=== PATIENT | female | born 1950 ===

== ENCOUNTER 2023-09-12 11:04 | Outpatient (AMB) | payer MEDICARE, MEDICAID, SELFPAY ==
--- NOTE | 2023-09-12 11:12 | A.OFFPC_ITS ---
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 Allergies No Known Allergies Allergy (Verified 09/12/23 11:15) Medication List - Last Reconciled 09/12/23 by Nakia Jose MD blood sugar diagnostic (OneTouch Ultra Test strips) 1 QD blood-glucose meter (OneTouch Ultra2 Meter) As directed lisinopril 5 mg PO DAILY Tobacco use date assessed: 09/12/23 Fall risk assessment: No Falls in past year Last assessed Fall Risk: 09/12/23 Dental Screening Dental Screen Date: 09/12/23 Did you have a dental visit in the last 12 months?: No Did you have a dental problem in the last 6 months where you did not have access to dental care?: No Was dental information given to patient?: Patient declined 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 Past medical history includes hypertension controlled on lisinopril and type 2 diabetes diet controlled. She has been exercising daily for at least an hour doing water aerobics and walking. [facility] Family History (Updated 09/12/23 @ 11:19 by Bree Wilburn [facility]) Father No problems noted. Mother No problems noted. Social History (Updated 09/12/23 @ 12:30 by Nakia Jose MD) Household Members Other:: single, from [facility], son and grandsons in , daughter in [facility], Housing: Other Patient Tobacco Use Status: Never used Tobacco e-Cigarette/Vaping Use: Never Used Current occupational status: retired Cognitive needs: No Hearing needs: No Vision needs: No Questionnaire PHQ-9 Over the last 2 weeks, how often have you been bothered by any of the following problems? 1. Little interest or pleasure in doing things: not at all 2. Feeling down, depressed, or hopeless: not at all 3. Trouble falling or staying asleep, or sleeping too much: not at all 4. Feeling tired or having little energy: not at all 5. Poor appetite or overeating: not at all 6. Feeling bad about yourself - or that you are a failure or have let yourself or your family down: not at all 7. Trouble concentrating on things, such as reading the newspaper or watching television: not at all 8. Moving or speaking so slowly that other people could have noticed. Or the opposite - being so fidgety or restless that you have been moving around a lot more than usual: not at all 9. Thoughts that you would be better off or of hurting yourself in some way: not at all Total score: 0 Depression Screening Interpretation: Negative Depression Screening Done: Yes Source: Developed by Drs. Nakul Hutton, Miranda Hinojosa, Franklin Bonilla and colleagues, with an educational evelyn from [employer]. Thrive Questionnaire Date Thrive assessed: 09/12/23 I am a: Patient What is your living situation today?: I have a steady place to live Within the past 12 months, did the food you bought not last and you didn't have the money to get more?: Never true Within the past 12 months, did you worry whether your food would run out before you got money to buy more?: Never true Do you have trouble paying for medicines?: No Do you have trouble getting transportation to medical appointments?: No Do you have trouble paying your heating and electricity bill?: No Do you have trouble taking care of your child, family member or friend?: No Do you have trouble with day-to-day activities such as bathing, preparing meals, shopping, managing finances, etc.?: No Are you currently unemployed and looking for a job?: No Are you interested in more education?: No Please select the resources that you would like help with: None Currently or been in a relationship where the following occur: no concerns reported AUDIT C Alcohol Use Questionnaire (AUDIT-C) 1. How often do you have a drink containing alcohol?: Never 3. How often do you have six or more drinks on one occasion?: Never Total Score: 0 EMILY-7 AMB Questionnaire EMILY-7 Date EMILY - 7 assessed: 09/12/23 Feeling nervous, anxious, or on edge: 0 = Not at all Not being able to stop or control worryin = Not at all Worrying too much about different things: 0 = Not at all Trouble relaxin = Not at all Being so restless that it is hard to sit still: 0 = Not at all Becoming easily annoyed or irritable: 0 = Not at all Feeling afraid as if something awful might happen: 0 = Not at all Total EMILY-7 score (0-4 normal; 5-9 mild; 10-14 moderate; 15-21 severe): 0 Source: Developed by Drs. Nakul Hutton, Miranda Hinojosa, Franklin Bonilla and colleagues, with an educational evelyn from [employer]. Review of Systems Const All systems reviewed & are unremarkable except as noted in HPI and below Eyes Reports no additional complaints Card Reports no additional complaints Resp Reports no additional complaints GI Reports no additional complaints Reports no additional complaints Physical exam (Primary Care) Vital Signs: Last Vital Signs Pulse 58 09/12/23 11:13 BP 124/74 09/12/23 11:13 Pulse Ox 97 09/12/23 11:13 Oxygen Delivery Method Room Air 09/12/23 11:13 BMI result Body Mass Index 29.1 Tobacco/Smoking Status: Tobacco use Status Tobacco use date assessed 09/12/23 09/12/23 11:21 Patient Tobacco Use Status Never used Tobacco 09/12/23 11:21 e-Cigarette/Vaping Use Never Used 09/12/23 11:21 PHQ-9: PHQ-9 Score PHQ-9: Total score 0 09/12/23 11:21 Depression Screening Interpretation: Negative Thrive Assessment: Date of Thrive Assessment Date Thrive assessed 09/12/23 09/12/23 11:21 Currently or been in a relationship where the following occur: no concerns reported Const General: no acute distress HENMT Head: Yes normal to inspection Ears: hearing grossly normal bilaterally Face and sinus: Yes normal facial exam Mouth: Normal oral and palatal mucosa present Throat: Yes posterior oropharynx normal Neck Neck: Yes no lymphadenopathy and Yes supple Resp Effort & Inspection: normal respiratory effort Auscultation: clear to auscultation bilaterally Cardio Rhythm: regular rhythm Heart sounds: S1 normal heart sound present and S2 normal heart sound present GI Inspection: Yes normal to inspection Palpation (GI): Soft to palpation Percussion: Yes normal to percussion Auscultation: normal bowel sounds Assessment and Plan Assessment & Plan (1) DM type 2 (diabetes mellitus, type 2): Code(s): E11.9 - Type 2 diabetes mellitus without complications Plan: Patient will have a fasting blood work in [facility] diet regular exercise discussed with the patient. Follow-up in 6 months (2) HTN (hypertension): Code(s): I10 - Essential (primary) hypertension Plan: Continue lisinopril (3) Colonoscopy refused: Comment: 10/03, Cologuard will be sent Code(s): Z53.20 - Procedure and treatment not carried out because of patient's decision for unspecified reasons (4) Mammogram declined: Comment: 10/03 Code(s): Z53.20 - Procedure and treatment not carried out because of patient's decision for unspecified reasons Orders: Orders Comprehensive [place]. Panel Fast Today E11.9 - Type 2 diabetes mellitus without complications, I10 - Essential (primary) hypertension Complete Blood Count Auto Diff Today E11.9 - Type 2 diabetes mellitus without complications, I10 - Essential (primary) hypertension Hemoglobin A1c Today E11.9 - Type 2 diabetes mellitus without complications, I10 - Essential (primary) hypertension Lipid Panel Today E11.9 - Type 2 diabetes mellitus without complications, I10 - Essential (primary) hypertension Microalbumin, Random (w Creat) Today E11.9 - Type 2 diabetes mellitus without complications, I10 - Essential (primary) hypertension TSH reflex Free T4 Today E11.9 - Type 2 diabetes mellitus without complications, I10 - Essential (primary) hypertension Referrals Cologuard Test Z12.11 - Encounter for screening for malignant neoplasm of colon, Z12.12 - Encounter for screening for malignant neoplasm of rectum Medications: New lisinopril 5 mg PO DAILY 90 tabs 3RF blood-glucose meter (OneTouch Ultra2 Meter) As directed 1 ea 0RF blood sugar diagnostic (OneTouch Ultra Test strips) 1 QD 100 ea 3RF Coding Level of Care Code New Pt Level 4 (98078) Diagnoses DM type 2 (diabetes mellitus, type 2) E11.9 HTN (hypertension) I10 Colonoscopy refused Z Mammogram declined Z
[2023-09-12 11:13] VITALS: BP 124/74; PULSE 58; O2SAT 97; BMI 29.1
== END 2023-09-12 12:36 | disposition home or self-care (01) ==
PROVIDERS: PCP Internal Medicine; Visit Provider Internal Medicine
DX: E11.9 Type 2 diabetes mellitus without complications (principal); I10 Essential (primary) hypertension; Z53.20 Procedure and treatment not carried out because of patient's decision for unspecified reasons
CPT/HCPCS: 99204

== ENCOUNTER 2024-03-14 08:20 | Outpatient (REF) | payer MEDICARE, MEDICAID, SELFPAY ==
[2024-03-14 11:08] LABS: MANUAL DIFF FLAG NO
[2024-03-14 11:17] LABS: Basophils Absolute Auto 0.1 X10*3/uL (0.0-0.2); Basophils Percent Auto 0.5 % (0-2); Eosinophils Absolute Auto 0.2 X10*3/uL (0.0-0.4); Eosinophils Percent Auto 2.3 % (0-4); Hematocrit 41.6 % (37.0-47.0); Imm Gran Abs Auto 0.01 X10*3/uL (0.00-0.03); Imm Gran Pct Auto 0.1 % (0.0-0.4); Lymphocytes Absolute Auto 3.7 X10*3/uL (1.2-4.9); Lymphocytes Percent Auto 38.9 % (20-40); Mean Corpuscular HGB Conc 33.7 g/dl (31.0-35.0); Mean Corpuscular Hemoglobin 32.1 pg (27.0-33.0); Mean Corpuscular Volume 95.4 fL (80.0-98.0); Mean Platelet Volume 10.5 fL (9.4-12.3); Monocytes Absolute Auto 0.6 X10*3/uL (0.1-1.2); Monocytes Percent Auto 5.7 % (2-11); Neutrophils Percent Auto 52.5 % (45-73); Platelet Count 306 X10*3/uL (160-400); Red Blood Count 4.36 X10*6/uL (4.20-5.50); Red Cell Distribution Width 12.4 % (11.0-16.0); White Blood Count 9.6 X10*3/uL (4.8-10.8)
[2024-03-14 11:31] LABS: Estimated Average Glucose 126 mg/dL; Hemoglobin A1C 149.7578 umol/L
[2024-03-14 12:00] LABS: Alanine Aminotransferase 16 U/L (0-31); Albumin Level 4.1 g/dL (3.5-5.0); Alkaline Phosphatase 74 U/L (39-117); Anion Gap 13 (12-20); Aspartate Amino Transferase 21 U/L (5-31); Bilirubin Total 0.4 mg/dL (0.0-1.0); Blood Urea Nitrogen 16 mg/dL (9-16); Carbon Dioxide 26 mmol/L (22-29); Chloride 109 mmol/L (96-108); Cholesterol 162 mg/dL (<200); Estimated Glomerular Filt Rate > 60; Glucose Fasting 143 mg/dL (60-99); HDL Cholesterol 60 mg/dL (>40); LDL Cholesterol Calculated 90 mg/dL (<100); Potassium 5.1 mmol/L (3.3-5.1); Sodium 143 mmol/L (135-145); Total Protein 6.8 g/dL (6.5-8.0); Triglycerides 63 mg/dL (<150)
[2024-03-14 12:20] LABS: TSH reflex Free T4 1.39 uIU/mL (0.32-4.0)
== END 2024-03-14 08:21 | disposition home or self-care (01) ==
LOC: HO.HMGCLDS 08:20
PROVIDERS: PCP Internal Medicine; Visit Provider Internal Medicine
DX: I10 Essential (primary) hypertension (principal); E11.9 Type 2 diabetes mellitus without complications
CPT/HCPCS: 36415; 80053; 80061; 83036; 84443; 85025

== ENCOUNTER 2024-03-16 05:45 | Outpatient (REF) | payer OTHER, SELFPAY ==
[2024-03-16 14:29] LABS: Creatinine Urine 67.66 mg/dL; Microalbumin Urine < 5.0 mg/L
== END 2024-03-16 05:46 | disposition home or self-care (01) ==
LOC: HO.HMGCLNP 05:45
PROVIDERS: PCP Internal Medicine; Visit Provider Internal Medicine
DX: I10 Essential (primary) hypertension (principal); E11.9 Type 2 diabetes mellitus without complications
CPT/HCPCS: 82043; 82570

== ENCOUNTER 2024-03-16 09:54 | Outpatient (AMB) | payer MEDICARE, MEDICAID, SELFPAY ==
[2024-03-16 10:00] VITALS: BP 126/64; PULSE 68; O2SAT 96; BMI 28.3
--- NOTE | 2024-03-16 10:00 | A.OFFPC_ITS ---
Vital Signs 03/16/24 10:00 Height 5 ft 5 in Weight 170 lb BMI 28.3 BP 126/64 Blood Pressure Location Lt brachial Position Sitting Pulse 68 Pulse Source Pulse Oximeter Pulse Oximetry (%) 96 Oxygen Delivery Method Room Air Intake Visit Reasons: 6 Month Follow Up Intake Note: Pt is here today for 6 months follow up visit. Allergies No Known Allergies Allergy (Verified 03/16/24 10:19) Medication List - Last Reconciled 03/16/24 by Nakia Jose MD blood sugar diagnostic (OneTouch Ultra Test strips) 1 QD blood-glucose meter (OneTouch Ultra2 Meter) As directed lisinopril 5 mg PO DAILY omeprazole 20 mg PO DAILY Tobacco use date assessed: 03/16/24 Fall risk assessment: No Falls in past year Last assessed Fall Risk: 03/16/24 Dental Screening Dental Screen Date: 03/16/24 Did you have a dental visit in the last 12 months?: Yes Did you have a dental problem in the last 6 months where you did not have access to dental care?: No Was dental information given to patient?: Patient has dentist HPI 6 Month Follow Up HPI Details Pt presents for f/u diet controlled DM. Patient reports intermittent epigastric abdominal discomfort worse after eating no nausea vomiting change in bowel habits hematochezia or melena. She tried omeprazole for 5 days with good relief. [facility] Surgical History (Updated 03/16/24 @ 10:23 by THADDEUS Mitchell) No pertinent past surgical history Family History Father No problems noted. Mother No problems noted. Social History Household Members Other:: single, from [facility], son and grandsons in , daughter in [facility], Housing: Other Patient Tobacco Use Status: Never used Tobacco e-Cigarette/Vaping Use: Never Used service: No Current occupational status: retired Cognitive needs: No Hearing needs: No Vision needs: No Questionnaire PHQ-9 Over the last 2 weeks, how often have you been bothered by any of the following problems? 1. Little interest or pleasure in doing things: not at all 2. Feeling down, depressed, or hopeless: not at all 3. Trouble falling or staying asleep, or sleeping too much: not at all 4. Feeling tired or having little energy: not at all 5. Poor appetite or overeating: not at all 6. Feeling bad about yourself - or that you are a failure or have let yourself or your family down: not at all 7. Trouble concentrating on things, such as reading the newspaper or watching television: not at all 8. Moving or speaking so slowly that other people could have noticed. Or the opposite - being so fidgety or restless that you have been moving around a lot more than usual: not at all 9. Thoughts that you would be better off or of hurting yourself in some way: not at all Total score: 0 Depression Screening Interpretation: Negative Depression Screening Done: Yes Source: Developed by Drs. Nakul Hutton, Miranda Hinojosa, Franklin Bonilla and colleagues, with an educational evelyn from [employer]. Thrive Questionnaire Date Thrive assessed: 03/16/24 I am a: Patient What is your living situation today?: I have a steady place to live Within the past 12 months, did the food you bought not last and you didn't have the money to get more?: Never true Within the past 12 months, did you worry whether your food would run out before you got money to buy more?: Never true Do you have trouble paying for medicines?: No Do you have trouble getting transportation to medical appointments?: No Do you have trouble paying your heating and electricity bill?: No Do you have trouble taking care of your child, family member or friend?: No Do you have trouble with day-to-day activities such as bathing, preparing meals, shopping, managing finances, etc.?: No Are you currently unemployed and looking for a job?: No Are you interested in more education?: No Please select the resources that you would like help with: None THRIVE Score: 0 AUDIT C Alcohol Use Questionnaire (AUDIT-C) 1. How often do you have a drink containing alcohol?: Never 3. How often do you have six or more drinks on one occasion?: Never Total Score: 0 EMILY-7 AMB Questionnaire EMILY-7 Date EMILY - 7 assessed: 03/16/24 Feeling nervous, anxious, or on edge: 0 = Not at all Not being able to stop or control worryin = Not at all Worrying too much about different things: 0 = Not at all Trouble relaxin = Not at all Being so restless that it is hard to sit still: 0 = Not at all Becoming easily annoyed or irritable: 0 = Not at all Feeling afraid as if something awful might happen: 0 = Not at all Total EMILY-7 score (0-4 normal; 5-9 mild; 10-14 moderate; 15-21 severe): 0 Source: Developed by Drs. Nakul Hutton, Miranda Hinojosa, Franklin Bonilla and colleagues, with an educational evelyn from [employer]. Review of Systems Const All systems reviewed & are unremarkable except as noted in HPI and below Reports no additional complaints Eyes Reports no additional complaints ENT Reports no additional complaints Card Reports no additional complaints Resp Reports no additional complaints GI Reports no additional complaints Reports no additional complaints Physical exam (Primary Care) Vital Signs: Last Vital Signs Pulse 68 03/16/24 10:00 BP 126/64 03/16/24 10:00 Pulse Ox 96 03/16/24 10:00 Oxygen Delivery Method Room Air 03/16/24 10:00 BMI result Body Mass Index 28.3 Tobacco/Smoking Status: Tobacco use Status Tobacco use date assessed 03/16/24 03/16/24 10:20 Patient Tobacco Use Status Never used Tobacco 03/16/24 10:20 e-Cigarette/Vaping Use Never Used 03/16/24 10:00 PHQ-9: PHQ-9 Score PHQ-9: Total score 0 03/16/24 10:24 Depression Screening Interpretation: Negative Thrive Assessment: Date of Thrive Assessment Date Thrive assessed 03/16/24 03/16/24 10:24 Const General: no acute distress HENMT Head: Yes normal to inspection Ears: hearing grossly normal bilaterally General nose exam: Normal external nose present Face and sinus: Yes normal facial exam Mouth: Normal oral and palatal mucosa present Neck Neck: Yes supple Resp Effort & Inspection: normal respiratory effort Auscultation: clear to auscultation bilaterally Cardio Rhythm: regular rhythm Heart sounds: S1 normal heart sound present and S2 normal heart sound present GI Palpation (GI): Soft to palpation Percussion: Yes normal to percussion Auscultation: normal bowel sounds Assessment and Plan Assessment & Plan (1) DM type 2 (diabetes mellitus, type 2): Code(s): E11.9 - Type 2 diabetes mellitus without complications Plan: A1c is 6.0, continue ADA diet regular exercise. Follow-up in 6 months with a fasting labs before (2) Gastritis: Code(s): K29.70 - Gastritis, unspecified, without bleeding Plan: Patient will try omeprazole for 1 month if her symptoms persist she will be referred to GI for endoscopy Orders: Orders Comprehensive [place]. Panel Fast 6 Months E11.9 - Type 2 diabetes mellitus without complications Hemoglobin A1c 6 Months E11.9 - Type 2 diabetes mellitus without complications Medications: New omeprazole 20 mg PO DAILY 30 caps 0RF Coding Level of Care Code Est Pt Level 3 (39753) Diagnoses DM type 2 (diabetes mellitus, type 2) E11.9 Gastritis K29.70
== END 2024-03-16 11:28 | disposition home or self-care (01) ==
PROVIDERS: PCP Internal Medicine; Visit Provider Internal Medicine
DX: E11.9 Type 2 diabetes mellitus without complications (principal); K29.70 Gastritis, unspecified, without bleeding
CPT/HCPCS: 99213

== ENCOUNTER 2024-10-21 11:11 | Outpatient (AMB) | payer OTHER, SELFPAY ==
[2024-10-21 11:15] VITALS: BP 126/76; PULSE 82; O2SAT 96; BMI 27.1
--- NOTE | 2024-10-21 11:15 | MHC.PC.OV ---
Vital Signs 10/21/24 11:15 Height 5 ft 5 in Weight 163 lb BMI 27.1 BP 126/76 Blood Pressure Location Lt brachial Position Sitting Pulse 82 Pulse Source Pulse Oximeter Pulse Oximetry (%) 96 Oxygen Delivery Method Room Air Intake Visit Reasons: 6 mnth f/u Intake Note: Pt is here today for 6 months follow up visit. Allergies No Known Allergies Allergy (Verified 10/21/24 11:17) Medication List - Last Reconciled 10/21/24 by Nakia Jose MD blood sugar diagnostic (OneTouch Ultra Test strips) 1 QD blood-glucose meter (OneTouch Ultra2 Meter) As directed omeprazole 20 mg PO DAILY Tobacco use date assessed: 10/21/24 Dental Screening Dental Screen Date: 03/16/24 HPI 6 mnth f/u HPI Details Pt presents for f/u of hyperglycemia and chronic GERD. She has been physically active , eating well-balanced diet and denies complaints PFSH Surgical History No pertinent past surgical history Family History Father No problems noted. Mother No problems noted. Social History Household Members Other:: single, from [facility], son and grandsons in , daughter in [facility], Housing: Other Patient Tobacco Use Status: Never used Tobacco e-Cigarette/Vaping Use: Never Used service: No Current occupational status: retired Cognitive needs: No Hearing needs: No Vision needs: No Questionnaire Thrive Questionnaire Date Thrive assessed: 03/16/24 EMILY-7 AMB Questionnaire EMILY-7 Date EMILY - 7 assessed: 03/16/24 Source: Developed by Drs. Nakul Hutton, Miranda Hinojosa, Franklin Bonilla and colleagues, with an educational evelyn from [employer]. Review of Systems Const All systems reviewed & are unremarkable except as noted in HPI and below ENT Reports no additional complaints Card Reports no additional complaints Resp Reports no additional complaints GI Reports no additional complaints Reports no additional complaints Physical exam (Primary Care) Vital Signs: Last Vital Signs Pulse 82 10/21/24 11:15 BP 126/76 10/21/24 11:15 Pulse Ox 96 10/21/24 11:15 Oxygen Delivery Method Room Air 10/21/24 11:15 BMI result Body Mass Index 27.1 Tobacco/Smoking Status: Tobacco use Status Tobacco use date assessed 10/21/24 10/21/24 11:19 Patient Tobacco Use Status Never used Tobacco 10/21/24 11:19 e-Cigarette/Vaping Use Never Used 10/21/24 11:19 Thrive Assessment: Date of Thrive Assessment Date Thrive assessed 03/16/24 10/21/24 11:19 Const General: no acute distress HENMT Mouth: Normal oral and palatal mucosa present Eyes General: appearance normal, both eyes and all related structures Neck Neck: Yes supple Resp Effort & Inspection: normal respiratory effort Auscultation: clear to auscultation bilaterally Cardio Rhythm: regular rhythm Heart sounds: S1 normal heart sound present and S2 normal heart sound present GI Inspection: Yes normal to inspection Palpation (GI): Soft to palpation Percussion: Yes normal to percussion Auscultation: normal bowel sounds Coding Level of Care Code Est Pt Level 3 (90625) Diagnoses DM type 2 (diabetes mellitus, type 2) E11.9 Vitamin D deficiency E55.9 Colonoscopy refused Z53.20 GERD (gastroesophageal reflux disease) K21.9 Assessment & Plan Assessment & Plan (1) DM type 2 (diabetes mellitus, type 2): Comment: Diet-controlled Code(s): E11.9 - Type 2 diabetes mellitus without complications Category: Medical Plan: Check A1c today, continue ADA diet regular physical activity follow-up in 6 months with a fasting labs before (2) Vitamin D deficiency: Code(s): E55.9 - Vitamin D deficiency, unspecified Category: Medical Plan: Continue vitamin-D supplement check the level (3) Colonoscopy refused: Comment: 10/03, Cologuard will be sent Code(s): Z53.20 - Procedure and treatment not carried out because of patient's decision for unspecified reasons Category: Medical Plan: Colonoscopy refused (4) GERD (gastroesophageal reflux disease): Comment: PPI prn Code(s): K21.9 - Gastro-esophageal reflux disease without esophagitis Category: Medical Plan: Continue PPI p.r.n. follow-up in 6 months Orders: Orders Comprehensive [place]. Panel Fast Today E11.9 - Type 2 diabetes mellitus without complications, E55.9 - Vitamin D deficiency, unspecified Comprehensive [place]. Panel Fast 6 Months E11.9 - Type 2 diabetes mellitus without complications, E55.9 - Vitamin D deficiency, unspecified Complete Blood Count Auto Diff 6 Months E11.9 - Type 2 diabetes mellitus without complications, E55.9 - Vitamin D deficiency, unspecified Microalbumin, Random (w Creat) 6 Months E11.9 - Type 2 diabetes mellitus without complications, E55.9 - Vitamin D deficiency, unspecified Hemoglobin A1c Today E11.9 - Type 2 diabetes mellitus without complications Vitamin D 25-OH Total Today E11.9 - Type 2 diabetes mellitus without complications Lipid Panel 6 Months E11.9 - Type 2 diabetes mellitus without complications, E55.9 - Vitamin D deficiency, unspecified Hemoglobin A1c 6 Months E11.9 - Type 2 diabetes mellitus without complications, E55.9 - Vitamin D deficiency, unspecified Medications: New esomeprazole magnesium (Nexium) 20 mg PO DAILY 30 caps 1RF lisinopril 5 mg PO DAILY 30 tabs 0RF Discontinued omeprazole Discontinued Reason: Doctor's Order 20 mg PO DAILY 30 caps 0RF
== END 2024-10-21 11:57 | disposition home or self-care (01) ==
PROVIDERS: PCP Internal Medicine; Visit Provider Internal Medicine
DX: E11.9 Type 2 diabetes mellitus without complications (principal); E55.9 Vitamin D deficiency, unspecified; Z53.20 Procedure and treatment not carried out because of patient's decision for unspecified reasons; K21.9 Gastro-esophageal reflux disease without esophagitis

== ENCOUNTER → 2024-11-30 10:32 | Outpatient (REF) | payer OTHER, SELFPAY ==
--- NOTE | 2024-11-30 10:35 | CA_ITS ---
Transthoracic Echocardiogram Patient (Last, First, Middle): Cynthia Echavarria, Gender: Female Date of : 1950 Age: 74 Procedure Date: 11/30/2024 Procedure Type: Transthoracic Echocardiogram Location: OP Height: 165.1 cm Weight: 74.39 kg BSA: 1.82 m2 Heart Rate: 58 bpm BP: 148 / 82 mmHg Liquor Clerk: MYLES Referring MD: Quinn Brewer [facility] Estate Planning Paralegal: Neal Hopkins MD Symptoms: R01.1 - Cardiac murmur, unspecified Study Quality: Fair ECG Rhythm: Bradycardia Conclusions: - 1. Normal LV ejection fraction 55-60% with mild LVH with impaired relaxation filling pattern 2. Mild calcific changes noted in the aortic and mitral valve with normal Dopplers 3. Normal RV systolic pressure 4. Mildly dilated ascending aorta at 3.9 cm 5. No gross pericardial effusion Findings Left Ventricle Normal left ventricular size and systolic function. There is mildly increased left ventricular wall thickness. The visually estimated ejection fraction is between 55-60%. Regional wall motion abnormalities can not be excluded due to suboptimal endocardial definition. Spectral Doppler is indicative of an impaired relaxation filling pattern. E/E prime ratio is between 8 and 15 consistent with indeterminate filling pressures. Right Ventricle The right ventricle was not well visualized. Atria The left atrium is likely dilated. There is no evidence of interatrial shunt. The right atrium is normal in size. Aortic Valve There is mild calcification of the aortic valve. There is no aortic valve stenosis. There is no aortic valve regurgitation. Mitral Valve There is mild anterior and posterior mitral leaflet thickening. There is mild mitral annular calcification. There is trace mitral valve regurgitation. There is no mitral valve stenosis. Pulmonic Valve The pulmonic valve was not well visualized. Tricuspid Valve Likely normal tricuspid valve structure and function. There is trace tricuspid valve regurgitation. The right ventricular systolic pressure is normal. The right ventricular systolic pressure is 15 mmHg. Normal right atrial pressure. There is no evidence of pulmonary hypertension. Great Vessels The pulmonary artery was not well visualized. There is mild dilatation of the ascending aorta measuring 3.90 cm. Small plaque is seen in the sino tubular ridge. Venous The inferior vena cava is normal in size and collapses greater than 50% with inspiration. Pericardium/Pleural There is no evidence of pericardial effusion. Prior Study Comparison No prior study available for comparison. Measurements 2D Linear Measurements IVSd: 1.34 0.6-0.9/0.6-1.0 cm LVIDd: 3.94 3.9-5.3/4.2-5.9 cm LVIDd Index: 2.16 2.4-3.2/2.2-3.1 cm/m2 LVIDs: 2.76 2.0-3.6 cm LVPWd: 1.10 0.7-1.1 cm LA Diam: 3.60 2.7-3.8/3.0-4.0 cm LAIDs Index: 1.98 1.5-2.3 cm/m2 LV Mass: 206.47 67-162/88-224 g LV Mass Index: 113.45 43-95/49-115 g/m2 LVOT Diam: 2.10 3.0+(-)1.3 cm 2D Systolic Function EF 4C: 56.40 >55% EF 2C: 57.20 >55% EF BiP: 55.50 >55% Mitral Valve MV Pk E: 0.65 MV PK A: 0.84 MV Decel Time: 255.00 E/A: 0.80 E'Lateral: 8.38 E'Medial: 5.22 E/E' Med: 12.40 E/E' Lat: 7.70 PHT: 75.00 MVA PHT: 2.93 Decel [place]: 2.54 Aortic Valve AoV Pk Cheo: 1.18 AoV Mn Cheo: 0.87 AoV VTI: 0.30 AoV Pk Grad: 6.00 Aov Mn Grad: 3.00 RAVI Cont.VTI: 2.65 LVOT LVOT Pk Cheo: 0.93 LVOT Mn Cheo: 0.64 LVOT VTI: 0.23 LVOT Pk Grad: 3.00 LVOT Mn Grad: 2.00 LVOT Diam: 2.10 LVOT Area: 3.46 Diastolic Function MV Pk E: 0.65 MV Pk A: 0.84 E/A: 0.80 E'Medial: 5.22 E/E' Med: 12.40 E' Laterial: 8.38 E/E' Lat: 7.70 Right Ventricle TAPSE (mm): 18.70 TVS' Cheo: 9.68 Tricuspid Valve TR Pk Cheo: 1.75 TR Pk Grad: 12.00 RA Press: 3.00 RVSP: 15.00 Great Vessels Aorta Sinus of Valsalva: 3.40 2.0-3.5 cm Ao Asc: 3.90 2.1-3.4 cm Ao Arch: 3.10 Pulmonary Valve PV Pk Cheo: 0.86 Peak PV Grad: 3.00 Updated in Other Vendor System with Status of Final Neal Hopkins MD electronically signed on 12/01/2024 12:37:06 PM with status of Final
== END ==
LOC: HO.CARD 10:32
PROVIDERS: PCP Nurse Practitioner Family; Visit Provider Nurse Practitioner Family
DX: R01.1 Cardiac murmur, unspecified (principal)
CPT/HCPCS: 93306

== ENCOUNTER → 2024-11-30 10:35 | Outpatient (BNV) | payer OTHER, SELFPAY | PROVIDERS: PCP Nurse Practitioner Family; Visit Provider Internal Medicine Cardiovascular Disease | DX: I35.8 Other nonrheumatic aortic valve disorders (principal); I34.81 Nonrheumatic mitral (valve) annulus calcification | CPT/HCPCS: 93306 ==

== ENCOUNTER 2025-05-06 11:16 | Outpatient (AMB) | payer OTHER, SELFPAY ==
[2025-05-06 11:19] VITALS: BP 124/70; PULSE 75; RESP 18; TEMP 36.5; O2SAT 97; BMI 27.0
--- NOTE | 2025-05-06 11:19 | MHC.PC.OV ---
Vital Signs 05/06/25 11:19 Height 5 ft 5 in Weight 162 lb BMI 27.0 BP 124/70 Blood Pressure Location Lt brachial Position Sitting Respiration 18 Pulse 75 Pulse Source Pulse Oximeter Temp 97.7 F Temp Source Oral Pulse Oximetry (%) 97 Oxygen Delivery Method Room Air Intake Visit Reasons: 6 months FU RE Intake Note: Pt is here today for 6 months follow up visit. Allergies No Known Allergies Allergy (Verified 05/06/25 11:20) Medication List - Last Reconciled 05/06/25 by Nakia Jose MD blood sugar diagnostic (OneTouch Ultra Test strips) 1 QD blood-glucose meter (OneTouch Ultra2 Meter) As directed esomeprazole magnesium (Nexium) 20 mg PO DAILY lisinopril 5 mg PO DAILY Tobacco use date assessed: 05/06/25 Fall risk assessment: No Falls in past year Last assessed Fall Risk: 05/06/25 Dental Screening Dental Screen Date: 05/06/25 Did you have a dental visit in the last 12 months?: No Did you have a dental problem in the last 6 months where you did not have access to dental care?: No Was dental information given to patient?: Patient declined HPI 6 months FU RE HPI Details Patient presents for the follow-up of diet controlled hyperglycemia and hypertension stable on current medications. [facility], [facility] Medical History (Updated 05/06/25 @ 16:04 by Nakia Jose MD) DM type 2 (diabetes mellitus, type 2) Hypertension Mild ascending aorta dilation Surgical History No pertinent past surgical history Family History Father No problems noted. Mother No problems noted. Social History Household Members Other:: single, from [place], son and grandsons in , daughter in [facility], Housing: Other Patient Tobacco Use Status: Never used Tobacco e-Cigarette/Vaping Use: Never Used service: No Current occupational status: retired Cognitive needs: No Hearing needs: No Vision needs: No Questionnaire PHQ-9 Over the last 2 weeks, how often have you been bothered by any of the following problems? 1. Little interest or pleasure in doing things: not at all 2. Feeling down, depressed, or hopeless: not at all 3. Trouble falling or staying asleep, or sleeping too much: not at all 4. Feeling tired or having little energy: not at all 5. Poor appetite or overeating: not at all 6. Feeling bad about yourself - or that you are a failure or have let yourself or your family down: not at all 7. Trouble concentrating on things, such as reading the newspaper or watching television: not at all 8. Moving or speaking so slowly that other people could have noticed. Or the opposite - being so fidgety or restless that you have been moving around a lot more than usual: not at all 9. Thoughts that you would be better off or of hurting yourself in some way: not at all Total score: 0 Depression Screening Interpretation: Negative Depression Screening Done: Yes 78739 - PHQ-9 Billing: Yes Source: Developed by Drs. Nakul Hutton, Miranda Hinojosa, Franklin Bonilla and colleagues, with an educational evelyn from [employer]. Thrive Questionnaire Date Thrive assessed: 05/06/25 I am a: Patient What is your living situation today?: I have a steady place to live Within the past 12 months, did the food you bought not last and you didn't have the money to get more?: Never true Within the past 12 months, did you worry whether your food would run out before you got money to buy more?: Never true Do you have trouble paying for medicines?: No Do you have trouble getting transportation to medical appointments?: No Do you have trouble paying your heating and electricity bill?: No Do you have trouble taking care of your child, family member or friend?: No Do you have trouble with day-to-day activities such as bathing, preparing meals, shopping, managing finances, etc.?: No Are you currently unemployed and looking for a job?: No Are you interested in more education?: No Please select the resources that you would like help with: None THRIVE Score: 0 AUDIT C Alcohol Use Questionnaire (AUDIT-C) 1. How often do you have a drink containing alcohol?: Never 3. How often do you have six or more drinks on one occasion?: Never Total Score: 0 EMILY-7 AMB Questionnaire EMILY-7 Date EMILY - 7 assessed: 05/06/25 Feeling nervous, anxious, or on edge: 0 = Not at all Not being able to stop or control worryin = Not at all Worrying too much about different things: 0 = Not at all Trouble relaxin = Not at all Being so restless that it is hard to sit still: 0 = Not at all Becoming easily annoyed or irritable: 0 = Not at all Feeling afraid as if something awful might happen: 0 = Not at all Total EMILY-7 score (0-4 normal; 5-9 mild; 10-14 moderate; 15-21 severe): 0 Source: Developed by Drs. Nakul Hutton, Miranda Hinojosa, Franklin Bonilla and colleagues, with an educational evelyn from [employer]. EMILY-7 Assessment Billing EMILY-7 Assessment Tool: EMILY-7 Assessment 03282 Review of Systems Const All systems reviewed & are unremarkable except as noted in HPI and below Card Reports no additional complaints Resp Reports no additional complaints GI Reports no additional complaints Reports no additional complaints Physical exam (Primary Care) Vital Signs: Last Vital Signs Temp 97.7 F 05/06/25 11:19 Pulse 75 05/06/25 11:19 Resp 18 05/06/25 11:19 BP 124/70 05/06/25 11:19 Pulse Ox 97 05/06/25 11:19 Oxygen Delivery Method Room Air 05/06/25 11:19 BMI result Body Mass Index 27.0 Tobacco/Smoking Status: Tobacco use Status Tobacco use date assessed 05/06/25 05/06/25 11:23 Patient Tobacco Use Status Never used Tobacco 05/06/25 11:23 e-Cigarette/Vaping Use Never Used 05/06/25 11:23 PHQ-9: PHQ-9 Score PHQ-9: Total score 0 05/06/25 11:24 Depression Screening Interpretation: Negative Thrive Assessment: Date of Thrive Assessment Date Thrive assessed 05/06/25 05/06/25 11:24 Const General: no acute distress HENMT Head: Yes normal to inspection Eyes General: appearance normal, both eyes and all related structures Resp Effort & Inspection: normal respiratory effort Auscultation: clear to auscultation bilaterally Cardio Rhythm: regular rhythm Heart sounds: S1 normal heart sound present and S2 normal heart sound present GI Inspection: Yes normal to inspection Results AMB Hemoglobin A1c AMB Hemoglobin A1c 6.2 % Last Edit by Jethro Reed CMA on 05/06/25 12:10 Results Reviewed Results Reviewed: Laboratory Last Values Hgb A1c (Clinic) 6.2 % (4.0-6.0) H 05/06/25 11:54 Coding Level of Care Code Est Pt Level 3 (88599) Diagnoses DM type 2 (diabetes mellitus, type 2) E11.9 Hypertension I10 Additional Codes EMILY-7 Assessment Billing - EMILY-7 Assessment Tool: EMILY-7 Assessment 79396 ([id number]) PHQ-9 - 64637 - PHQ-9 Billing: Yes ([id number]) Assessment & Plan Assessment & Plan (1) DM type 2 (diabetes mellitus, type 2): Comment: Diet-controlled Code(s): E11.9 - Type 2 diabetes mellitus without complications Category: Medical Plan: A1c is 6.2, ADA diet increase exercise weight loss discussed with the patient follow-up in 6 months with a fasting labs before (2) Hypertension: Code(s): I10 - Essential (primary) hypertension Category: Medical Plan: Continue Lisinopril Orders: Orders Vitamin B12 6 Months E53.8 - Deficiency of other specified B group vitamins AMB Hemoglobin A1c Today Z13.9 - Encounter for screening, unspecified Hemoglobin A1c 6 Months E11.9 - Type 2 diabetes mellitus without complications Comprehensive [place]. Panel Fast 6 Months E11.9 - Type 2 diabetes mellitus without complications
--- OUTSIDE RECORDS SUMMARY | 2025-05-06 13:29 | XMS_ITS | Clinical Summary ---
Author Organization [facility] Address [address] [place] [address] Care Team Providers Care Photoresist Contact Printer Name Role Phone Jorgito Tan MD Primary Care Provider + Surgical History Surgery Date Site/Laterality Comments OTHER SURGICAL HISTORY PROCEDURE: DENIES PREVIOUS SURGERY Medical History Medical History Date Comments Heart disease DX:Heart disease ; COMMENT: pt doesn't know details-- possible SC Prediabetes DX:Prediabetes HTN (hypertension) DX:HTN (hyper tension) Family History Medical History Relation Name Comments Coronary artery disease Brother 1 Coronary artery disease Father Relation Name Status Comments Brother 1 Brother 2 Alive Father Mother Social History Tobacco Use Types Packs/Day Years Used Date Smoking Tobacco: Never Alcohol Use Standard Drinks/Week Comments Not Asked 0 (1 standard drink = 0.6 oz pur e alcohol) Comments Unknown Sex and Gender Information Value Date Recorded Sex Assigned at Not on file Legal Sex Female 3:08 AM EST Gender Identity Not on file Sexual Orientation Not on file Obstetrics History Plan of Treatment Health Maintenance Due Date Last Done Comments DTaP,Tdap,and Td Vaccines (1 - Tdap) 1967 Pneumococcal Vaccine: 50+ Years (1 of 2 - PCV) 1967 Zoster Vaccines (1 of 2) 1998 Cholesterol Screening (Lipid Panel) 10/14/2022 Depression Screening 10/14/2022 Falls Risk Assessment 10/14/2022 Hepatitis C Screening 10/14/2022 Social Influencers of Health Screening 10/14/2022 Hypertension/CHF/CAD Annual BMP Blood Test 08/14/2023 08/14/2022, 08/14/2022, 11/23/2021, Additional history exists RSV Immunization Adult Patients (1 - 1-dose 75+ series) 2023 COVID-19 Vaccine ( season) 2024 Influenza Vaccine (Season Ended) 2025 Osteoporosis Screening (Bone Density Screening) 10/25/2027 10/25/2017 HIB Vaccines Aged Out No longer eligi ble based on patient's age to complete this topic HPV Vaccines Aged Out No longer eligi ble based on patient's age to complete this topic Hepatitis A Vaccines Aged Out No long er eligible based on patient's age to complete this topic Hepatitis B Vaccines Aged Out No long er eligible based on patient's age to complete this topic IPV Vaccines Aged Out No longer eligi ble based on patient's age to complete this topic MMR Vaccines Aged Out No longer eligi ble based on patient's age to complete this topic Meningococcal ACWY Vaccine Aged Out N o longer eligible based on patient's age to complete this topic Meningococcal B Vaccine Aged Out No l onger eligible based on patient's age to complete this topic RSV Immunization Patients Under 20 months Aged Out No longer eligible based on patient's age to complete this topic Varicella Vaccines Aged Out No longer eligible based on patient's age to complete this topic Procedures Procedure Name Priority Date/Time Associated Diagnosis Comments DXA BONE DENSITY STUDY 1+ SITS AXIAL SKEL Routine 10/25/2017 11:11 AM EST Asymptomatic menopausal state from Last 3 Months or Most Recently Relevant to Health Maintenance Results * DXA BONE DENSITY STUDY 1+ SITS AXIAL SKEL (10/25/2017 11:11 AM EST) Anatomical Region Laterality Modality Bone Densitometr y 10/18/2017 1:36 PM EST Narrative 10/25/2017 1:29 PM EST DEXA SCAN: Lumbar Spine T-score is +2.4. (SD relative to 20-29 y/o adult) Z-score is +4.4. (SD relative to age matched peers) This is considered normal bone density by WHO criteria. Left Hip T-score is -0.3. Z-score is +1.5. This is considered normal bone density by WHO criteria. Comparison exam(s): None available. IMPRESSION: Normal bone density by WHO criteria. The World Health Organization Fracture Risk Assessment is not calculated as all T scores are at or above -1.0. The [facility] Department of Internal Medicine recommends using National Osteoporosis Foundation (NOF) guidelines in treatment decisions related to osteoporosis. NOF guidelines suggest considering treatment for postmenopausal women and men aged 50 or older presenting with the following: History of hip or vertebral fracture. T-score = -2.5 (DXA) at the femoral neck, total hip, or spine, after appropriate evaluation to exclude secondary causes. Low bone mass (T-score between -1.0 and -2.5 at the femoral neck or spine) AND a 10-year probability of a hip fracture = 3% OR a 10-year probability of a major osteoporosis-related fracture = 20% based on the [place]-adapted WHO algorithm Please note that all treatment decisions require clinical judgment and consideration of individual patient factors, including patient preferences, co-morbidities, previous drug use, risk factors not captured in the FRAX model (e.g., frailty, falls, vitamin D deficiency, increased bone turnover, interval significant decline in bone density) and possible under- or over-estimation of fracture risk by FRAX. Optional alternative screening schedule based on malissa Le., [facility] November 29, 2011 for patients with osteopenia (based on hip BMD T-score) is as follows: * advanced osteopenia (T scores -2.00 to -2.49), BMD testing every year * moderate osteopenia (T scores -1.50 to -1.99), BMD testing every 5 years mild osteopenia or normal BMD (T scores -1.50 and higher), BMD testing every 15 years Procedure Note Celine Morales DO - 12/16/2023 DEXA SCAN: Lumbar Spine T-score is +2.4. (SD relative to 20-29 y/o adult) Z-score is +4.4. (SD relative to age matched peers) This is considered normal bone density by WHO criteria. Left Hip T-score is -0.3. Z-score is +1.5. This is considered normal bone density by WHO criteria. Comparison exam(s): None available. IMPRESSION: Normal bone density by WHO criteria. The World Health OrganizationFracture Risk Assessment is not calculated as all T scores are at or above -1.0. The [facility] Department of Internal Medicine recommendsusing National Osteoporosis Foundation (NOF) guidelines in treatment decisions related toosteoporosis. NOF guidelines suggest considering treatment for postmenopausal women and menaged 50 or older presenting with the following: History of hip or vertebral fracture. T-score = -2.5 (DXA) at the femoral neck, total hip, or spine, afterappropriate evaluation to exclude secondary causes. Low bone mass (T-score between -1.0 and -2.5 at the femoral neck or spine)AND a 10-year probability of a hip fracture = 3% OR a 10-year probability of a majorosteoporosis-related fracture = 20% based on the [place]-adapted WHO algorithm Please note that all treatment decisions require clinical judgment andconsideration of individual patient factors, including patient preferences, co- morbidities,previous drug use, risk factors not captured in the FRAX model (e.g., frailty, falls, vitaminD deficiency, increased bone turnover, interval significant decline in bone density) andpossible under- or over-estimation of fracture risk by FRAX. Optional alternative screening schedule based on allen Le al., NEJJanuary 2011 for patients with osteopenia (based on hip BMD T-score) is as follows: * advanced osteopenia (T scores -2.00 to -2.49), BMD testing every year * moderate osteopenia (T scores -1.50 to -1.99), BMD testing every 5years mild osteopenia or normal BMD (T scores -1.50 and higher), BMD testingevery 15 years Jennifer Wade DO [facility] DXA PROCEDURE S Final Result from Last 3 Months or Most Recently Relevant to Health Maintenance Care Teams Photoresist Contact Printer Relationship Specialty Start Date End Date Jorgito Tan MD PCP - General Internal Medicine 05/07/18
== END 2025-05-06 12:19 | disposition home or self-care (01) ==
LOC: HO.HMCC 11:17
PROVIDERS: PCP Nurse Practitioner Family; Visit Provider Internal Medicine
DX: E11.9 Type 2 diabetes mellitus without complications (principal); I10 Essential (primary) hypertension; Z13.9 Encounter for screening, unspecified

== ENCOUNTER → 2025-05-06 11:16 | Outpatient (BNVA) | payer OTHER, SELFPAY | PROVIDERS: PCP Nurse Practitioner Family; Visit Provider Internal Medicine | DX: I10 Essential (primary) hypertension (principal); E11.9 Type 2 diabetes mellitus without complications | CPT/HCPCS: 83036; 96127; 99212 ==

== ENCOUNTER 2025-06-08 12:59 | Outpatient (REF) | payer OTHER, SELFPAY ==
--- NOTE | ~2025-06-08 | XR_ITS ---
EXAMINATION: XR HIP, LEFT CLINICAL INFORMATION: M25.552 - Pain in left hip COMPARISON: None available. TECHNIQUE: AP and oblique views of the left hip. AP view pelvis. FINDINGS: Sclerosis subchondral cyst formation and asymmetric joint space narrowing involving the coxofemoral joints without acute cortical disruption or gross malalignment. Degenerative changes in the symphysis pubis. Multilevel lower lumbar spondylosis. Dystrophic calcification overlapping the gluteal regions. XR/XR hip LT w PEL1V IMPRESSION: Osteoarthrosis, moderate to severe both coxofemoral joints. Degenerative changes, symphysis pubis. Spondylosis, lower lumbar spine. Electronically signed by: Phan Oreilly MD 06/08/2025 03:30 PM EDT
== END 2025-06-08 13:00 | disposition home or self-care (01) ==
LOC: HO.HMGCX 12:59
PROVIDERS: PCP Nurse Practitioner Family; Visit Provider Physician Assistant Medical
DX: M25.552 Pain in left hip (principal)
CPT/HCPCS: 73502; 99212

== ENCOUNTER 2025-06-08 12:59 | Outpatient (AMB) | payer OTHER, SELFPAY ==
--- OUTSIDE RECORDS SUMMARY | 2025-06-08 13:45 | XMS_ITS | Clinical Summary ---
Author Organization [facility] Address [address] [place] [address] Care Team Providers Care Student Ambassador Name Role Phone Unavailable Primary Care Provider Unavailabl e Allergies No known active allergies Medications Medication Sig Dispensed Refills Start Date End Date Status albuterol 108 (90 Base) MCG/ACT inhaler Inhale 2 puffs into the lungs every 6 (six) hours as needed for wheezing or shortness of breath. 18 g 1 11/23/2021 Active Active Problems Problem Noted Date Diagnosed Date Pneumonia due to COVID-19 virus 11/22/2021 Social History Tobacco Use Types Packs/Day Years Used Date Smoking Tobacco: Never Smokeless Tobacco: Never Alcohol Use Standard Drinks/Week Comments Never 0 (1 standard drink = 0.6 oz pur e alcohol) Sex and Gender Information Value Date Recorded Sex Assigned at Female 11/22/2021 7:07 PM EST Gender Identity Female 08/14/2022 4:30 PM EDT Sexual Orientation Not on file Job Start Date Occupation Industry Not on file Not on file Not on file Last Filed Vital Signs Vital Sign Reading Time Taken Comments Blood Pressure 155/72 08/14/2022 6:00 PM EDT Pulse 64 08/14/2022 6:00 PM EDT Temperature 36.7 C (98 F) 08/14/2022 6:00 PM EDT Respiratory Rate 22 08/14/2022 6:00 PM EDT Oxygen Saturation 96% 08/14/2022 6:00 PM EDT Inhaled Oxygen Concentration - - Weight 81.7 kg (180 lb 3.2 oz) 11/22/2021 10:26 PM EST Height 162.6 cm (5' 4 ) 11/22/2021 10:26 PM EST Body Mass Index 30.93 11/22/2021 10:26 PM EST Plan of Treatment Health Maintenance Due Date Last Done Comments Hepatitis C Screening 1950 COVID-19 Vaccine (#1) 04/11/1951 Pneumococcal Vaccine (1 of 2 - PCV) 1954 Depression Screening 1960 Preventative Health Evaluation 1966 DTap / Tdap / Td (1 - Tdap) 1967 Shingrix-Zoster Vaccine (1 of 2) 1998 Fall Risk Assessment 2013 Osteoporosis Screening (DEXA Scan) 2013 RSV Adult > 60+ Yrs or Pregn ant (1 - 1-dose 75+ series) 2023 Influenza Vaccine (#1) 2025 Hepatitis B Vaccines Aged Out No long er eligible based on patient's age to complete this topic RSV Ped < 20 months Aged Out No longe r eligible based on patient's age to complete this topic Additional Health Concerns Infection Onset Date Last Indicated COVID-19 Confirmed 11/22/2021 11/23/2021 Advance Directives For more information, please contact: [phone] Latest Code Status on File Code Status Date Activated Date Inactivated Comments Full Code 11/22/2021 9:33 PM 11/23/2021 6:55 PM This code status was ascertained in the following way: discussion with patient .
--- OUTSIDE RECORDS SUMMARY | 2025-06-08 13:45 | XMS_ITS | Clinical Summary ---
Author Organization [facility] Address [address] [place] [address] Care Team Providers Care Fire Eater Name Role Phone Sarah Lepe PA-C Primary Care Provider [phone] Source Comments PLEASE NOTE, if this patient is a minor, it may be UNLAWFUL to discuss sensitive information that is contained in these records (such as FAMILY PLANNING, MENTAL HEALTH or SUBSTANCE ABUSE) with the minor patient's parent or other person without the patient's specific authorization.[facility] Allergies No known active allergies Medications omeprazole (PRILOSEC) [address] capsuleIndications :Dyspepsia Take 1 Cap by mouth every morning before breakfast. Do not crush or chew. 30 Cap 5 5 Active diclofenac (VOLTAREN) 1 % gelIndications:Rig ht knee DJD Apply topically 2 (two) times daily. Apply to most painful area. 100 g 5 5 Active naproxen sodium (ALEVE) 220 mg capsuleIndications :Primary osteoarthritis of right knee Take 1 Tab by mouth 2 (two) times daily with a meal. 60 Cap 5 5 Active Active Problems Problem Noted Date Diagnosed Date Atypical chest pain, stress MIBi 04/2013 015 Overview (02/04/2015): Result type: Discharge/Transfer Note Hospital Result date: 27 April 2013 17:46 Result status: Auth (Verified) Result title: Physician Discharge Summary Performed by: Shweta Swanson MD on 27 April 2013 17:48 Verified by: Shweta Swanson MD on 27 April 2013 18:00 Encounter info: [id number], [facility], Disch Obv, 04/24/2013 - 04/27/2013 Physician Discharge Summary Patient: CYNTHIA ECHAVARRIA Age: 62 years Sex: Female : 1950 Associated Diagnoses: Atypical chest pain; Diabetes mellitus - adult onset; Dyspnea on exertion; BMI 30+ - obesity Author: Shweta Swanson MD Discharge Information Principal Discharge Diagnosis Atypical chest pain. Secondary Discharge Diagnoses Diabetes mellitus - adult onset. BMI 30+ - obesity. Dyspnea on exertion. Patient is aware of diagnosis Attending Consultants Bao Porter MD Discharge condition: good Compared to admission: improved Functional Status: ambulatory Discharge Disposition Home: family. Discharge Summary distribution: Route to attending, referring, and primary care provider. Route to: Bao Porter MD Hospital Course Typed narrative Patient presented with intermittent chest pain, which she has had for years. In the past she was treated with unknown medication [in the [facility]] but has never had any evaluation here. Cardiac risk factor is age. She wasn't able to walk on the treadmill, complaining of shortness of breath. Regadenoson stress was WNL. Given FAGAN a dobutamine stress echo was done today to exclude dyspnea as an anginal equivalent with triple vessel or left main disease. This was also WNL. Regadenosine Stress Test Summary Myocardial perfusion imaging is normal without fixed or reversible perfusion defectsafter Regadenoson infusion. LV function is normal with an LVEF of 64% with normal wall motion and thickening. I also had her evaluated for hypoxia with ambulation, and this was also WNL. She can be referred to pulmonary as an outpatient to further evaluate her dyspnea. Her blood sugars are consistent with a Dx of AODM, and she an be referred for outpatient diabetic education through her PCP. Significant Results Results: Laboratory : LABORATORY. 04/27/2013 6:56 Glucose, POC 137 mg/dL H 04/26/2013 22:10 Glucose, POC 134 mg/dL H 04/26/2013 17:52 Glucose, POC 111 mg/dL H 04/26/2013 14:37 Glucose, POC 108 mg/dL H 04/26/2013 7:03 Glucose, POC 113 mg/dL H 04/25/2013 17:27 Glucose, POC 199 mg/dL H 04/25/2013 12:11 Glucose, POC 169 mg/dL H 04/25/2013 4:20 Hemoglobin A1C (Diagnostic) 6.2 % H Cholesterol 138 mg/dL Triglycerides 74 mg/dL HDL Cholesterol 51 mg/dL LDL Cholesterol 72 mg/dL TSH 1.57 mIU/mL 25 OH-Vitamin D Level 19.9 ng/mL L 04/24/2013 19:43 WBC 9.3 k/mm3 Hgb 14.1 Gm/dL Hct 40.3 % Platelet Count 285 k/mm3 Sodium 142 mmol/L Potassium 4.4 mmol/L Chloride 106 mmol/L Bicarbonate Level 25 mmol/L Glucose Level 150 mg/dL H BUN 16 mg/dL Creatinine-Blood 0.7 mg/dL 01/05/2013 8:43 Glucose Level 145 mg/dL H Discharge Plan Diet/Activity/Patient Education/Follow Up Patient was given the following educational materials: What Is Type 2 Diabetes?(Saudi Arabian), Activity-No Restrictions (Custom). Follow Up with: Yulia Yoder MD Within [address] Yoder will refer you to a operator coating furnace for diabetic diet teaching and to a flight security specialist to further evaluate your shortness of breath. MEDICATION LIST (Selected) Prescriptions Prescribed ergocalciferol 31097 iu oral capsule: 1 capsule = 50,000 International_Units, By Mouth, Every week, # 8 capsule, 0 Refills, Maintenance Pre-diabetes 02/04/2015 Right knee DJD 02/04/2015 Social History Tobacco Use Types Packs/Day Years Used Date Smoking Tobacco: Never Alcohol Use Standard Drinks/Week Comments No 0 (1 standard drink = 0.6 oz pur e alcohol) Comments No Sex and Gender Information Value Date Recorded Sex Assigned at Not on file Legal Sex Female 8:39 AM PST Gender Identity Not on file Sexual Orientation Not on file Last Filed Vital Signs Vital Sign Reading Time Taken Comments Blood Pressure 130/74 07/06/2015 1:00 PM EDT Pulse 68 07/06/2015 1:00 PM EDT Temperature 36.3 C (97.3 F) 07/06/2015 1:00 PM EDT Respiratory Rate 16 07/06/2015 1:00 PM EDT Oxygen Saturation 98% 05/20/2015 1:47 PM EDT Inhaled Oxygen Concentration - - Weight 83 kg (183 lb) 07/06/2015 1:00 PM EDT Height 165.1 cm (5' 5 ) 07/06/2015 1:00 PM EDT Body Mass Index 30.45 07/06/2015 1:00 PM EDT Plan of Treatment Not on file Insurance [place] MEDICA[place] Care Teams Fire Eater Relationship Specialty Start Date End Date Sarah Lepe PA-C [address] [place] [phone] PCP - General Internal Medicine 02/04/15
--- OUTSIDE RECORDS SUMMARY | 2025-06-08 13:45 | XMS_ITS | Clinical Summary ---
Author Organization [facility] Address [address] [place] [address] Care Team Providers Care Ladle Liner Helper Name Role Phone Jorgito Tan MD Primary Care Provider + Surgical History Surgery Date Site/Laterality Comments OTHER SURGICAL HISTORY PROCEDURE: DENIES PREVIOUS SURGERY Medical History Medical History Date Comments Heart disease DX:Heart disease ; COMMENT: pt doesn't know details-- possible [place] Prediabetes DX:Prediabetes HTN (hypertension) DX:HTN (hyper tension) [...] 2) 1998 Cholesterol Screening (Lipid Panel) 10/14/2022 Falls Risk Assessment 10/14/2022 Hepatitis C Screening 10/14/2022 Social Influencers of Health Screening 10/14/2022 Hypertension/CHF/CAD Annual BMP Blood Test 08/14/2023 08/14/2022, 08/14/2022, 11/23/2021, Additional history exists RSV Immunization Adult Patients (1 - 1-dose 75+ series) 2023 COVID-19 Vaccine ( season) 2024 Depression Screening 11/11/2024 Influenza Vaccine (#1) 2025 Osteoporosis Screening (Bone Density Screening) 10/25/2027 [...] scores are at or above -1.0. The [facility] Department of Internal Medicine recommends using National [...] alternative screening schedule based on malissa Le., [facility] November 29, 2011 for patients [...] scores are at or above -1.0. The [facility] Department of Internal Medicine recommendsusing National Osteoporosis [...] BMD testingevery 15 years Jennifer Wade DO [facility] [place]EDURE S Final Result from Last 3 Months or Most Recently Relevant to Health Maintenance Care Teams Ladle Liner Helper Relationship Specialty Start Date End Date Jorgito Tan MD PCP - General Internal Medicine 05/07/18
[2025-06-08 14:19] VITALS: BP 138/72; PULSE 82; TEMP 36.6; O2SAT 97; BMI 26.5
--- NOTE | 2025-06-08 14:19 | AM.OFFWIN_ITS ---
Intake Vital Signs 06/08/25 14:19 Height 5 ft 5 in Weight 159 lb BMI 26.5 BP 138/72 Blood Pressure Location Rt brachial Position Standing Pulse 82 Pulse Source Pulse Oximeter Temp 97.8 F Temp Source Oral Pulse Oximetry (%) 97 Oxygen Delivery Method Room Air Intake Visit Reasons: EP pain on LT hip Intake Note: presents with severe LT hip pain for 2 weeks- denies any injury Patient Tobacco Use Status: Never used Tobacco Event Set Up Specialist Required: Yes Event Set Up Specialist Language: Luxembourger Event Set Up Specialist Name: [id number] Allergies No Known Allergies Allergy (Verified 06/08/25 14:29) Do you need a note to return to daycare/school/sports/work: No HPI HPI Comments History of Present Illness Details History of Present Illness - The patient is a 74-year-old [facility] female presenting with left hip pain. - The pain is localized to the left side and does not radiate. - The onset of pain was approximately tw o weeks ago. - The pain occurs when standing up and b eginning to move, but not when sitting, lying down, or walking. - No pain radiates down the leg or to th e back, and there is no numbness or tingling. - The patient has not used any pain medi cation and manages the pain with exercises. - No prior imaging studies have been con ducted for this issue. - She does not use a walker or a cane. - She has no trauma or falls. - She denies other joint pain. Physical Exam General: Cooperative, healthy appearing, comfortable, no acute distress and well developed Orientation: Patient oriented x3 Respiratory: Normal respiratory effort and able to speak in complete sentences. Clear to auscultation bilaterally Cardiovascular: Regular rate and rhythm. Normal S1 and S2 Skin: No rashes or lesions noted Neuro: Patient oriented x3 Extremities: Normal to inspection. FROM of the left hip. Adduction and abduction of the left hip is intact. No click noted. No TTP of the left lateral pelvic brim and lateral hip. No TTP of the left upper leg. FROM of the knee and ankle. Ambulates with a limp. Strength is 5/5 on the LE bilaterally. Patient was informed and verbally consented to the use of an ambient scribe for clinic note documentation during this visit. [facility] Medical History (Updated 05/06/25 @ 16:04 by Nakia Jose MD) DM type 2 (diabetes mellitus, type 2) Hypertension Mild ascending aorta dilation Surgical History No pertinent past surgical history Family History Father No problems noted. Mother No problems noted. Social History Household Members Other:: single, from [facility], son and grandsons in , daughter in [facility], Housing: Other Patient Tobacco Use Status: Never used Tobacco e-Cigarette/Vaping Use: Never Used service: No Current occupational status: retired Cognitive needs: No Hearing needs: No Vision needs: No Review of Systems Const All systems reviewed & are unremarkable except as noted in HPI and below Physical Exam Vital Signs: Last Vital Signs Temp 97.8 F 06/08/25 14:19 Pulse 82 06/08/25 14:19 BP 138/72 06/08/25 14:19 Pulse Ox 97 06/08/25 14:19 Oxygen Delivery Method Room Air 06/08/25 14:19 BMI result Body Mass Index 26.5 Results Reviewed Results Reviewed: reviewed the x-ray in the office Assessment & Plan Assessment & Plan (1) Left hip pain: Code(s): M25.552 - Pain in left hip Plan Most likely arthritis vs strain vs bursitis vs tendonitis Plan - An x-ray of the hip will be performed to investigate the cause of the pain. - The patient will be informed of the x-ray results once available. - Rest and heat to the area - activities as tolerated - will refer her to PT - follow up with PCP Orders: Orders PT Evaluation and Treatment Today M25.552 - Pain in left hip XR hip LT w PEL1V Today M25.552 - Pain in left hip Coding Level of Care Code Est Pt Level 4 (34816) Diagnoses Left hip pain M25.552
== END 2025-06-08 15:23 | disposition home or self-care (01) ==
PROVIDERS: PCP Nurse Practitioner Family; Visit Provider Physician Assistant Medical
DX: M25.552 Pain in left hip (principal)

== ENCOUNTER → 2025-06-08 15:17 | Outpatient (BNV) | payer OTHER, SELFPAY | PROVIDERS: PCP Nurse Practitioner Family; Visit Provider Radiology Diagnostic Radiology | DX: M16.12 Unilateral primary osteoarthritis, left hip (principal) | CPT/HCPCS: 73502 ==

== ENCOUNTER 2025-07-27 13:00 | Outpatient (RCR) | payer OTHER, SELFPAY | END 2025-08-26 09:53 | disposition home or self-care (01) | LOC: HO.PTCHIC 13:00 | PROVIDERS: PCP Internal Medicine; Visit Provider Physician Assistant Medical | DX: M25.552 Pain in left hip (principal) | CPT/HCPCS: 97110; 97161 ==

== ENCOUNTER 2025-10-29 13:41 | Outpatient (AMB) | payer OTHER, SELFPAY ==
[2025-10-29 13:43] VITALS: BP 134/64; PULSE 84; RESP 17; TEMP 36.6; O2SAT 96; BMI 26.0
--- NOTE | 2025-10-29 13:43 | MHC.PC.OV ---
Vital Signs 10/29/25 13:43 Height 5 ft 5 in Weight 156 lb BMI 26.0 BP 134/64 Blood Pressure Location Lt brachial Position Sitting Respiration 17 Pulse 84 Pulse Source Pulse Oximeter Temp 97.9 F Temp Source Oral Pulse Oximetry (%) 96 Oxygen Delivery Method Room Air Intake Visit Reasons: Blood pressure - see comments Intake Note: Pt is here today for a follow up visit on labs and HTN. Train Brakeman Required: No Allergies No Known Allergies Allergy (Verified 10/29/25 13:47) Tobacco use date assessed: 10/29/25 Fall risk assessment: No Falls in past year Last assessed Fall Risk: 10/29/25 Dental Screening Dental Screen Date: 05/06/25 HPI Blood pressure - see comments HPI Details Patient had an episode of heartburn after eating cabbage and fresh fruits. She noted increase blood pressure to 170/80. Patient denies dysphagia odynophagia nausea vomiting food regurgitation. She reports chronic constipation. Patient had endoscopy a few years ago in [facility]. She has not been taking Nexium regularly. Patient took 10 mg of lisinopril yesterday and is feeling better today. She denies chest palpitations shortness or breath. [facility] Medical History (Updated 10/29/25 @ 14:27 by Nakia Jose MD) GERD (gastroesophageal reflux disease) DM type 2 (diabetes mellitus, type 2) Hypertension Mild ascending aorta dilation Surgical History No pertinent past surgical history Family History Father No problems noted. Mother No problems noted. Social History Household Members Other:: single, from [facility], son and grandsons in , daughter in [facility], Housing: Other Patient Tobacco Use Status: Never used Tobacco e-Cigarette/Vaping Use: Never Used service: No Current occupational status: retired Cognitive needs: No Hearing needs: No Vision needs: No Questionnaire Thrive Questionnaire Date Thrive assessed: 05/06/25 EMILY-7 AMB Questionnaire EMILY-7 Date EMILY - 7 assessed: 05/06/25 Source: Developed by Drs. Nakul Hutton, Miranda B.W. Franklin Hinojosa and colleagues, with an educational evelyn from [employer]. Review of Systems Const All systems reviewed & are unremarkable except as noted in HPI and below Eyes Reports no additional complaints ENT Reports no additional complaints Card Reports no additional complaints Resp Reports no additional complaints GI Reports no additional complaints Reports no additional complaints Physical exam (Primary Care) Vital Signs: Last Vital Signs Temp 97.9 F 10/29/25 13:43 Pulse 84 10/29/25 13:43 Resp 17 10/29/25 13:43 BP 134/64 10/29/25 13:43 Pulse Ox 96 10/29/25 13:43 Oxygen Delivery Method Room Air 10/29/25 13:43 BMI result Body Mass Index 26.0 Tobacco/Smoking Status: Tobacco use Status Tobacco use date assessed 10/29/25 10/29/25 13:50 Patient Tobacco Use Status Never used Tobacco 10/29/25 13:43 e-Cigarette/Vaping Use Never Used 10/29/25 13:43 Thrive Assessment: Date of Thrive Assessment Date Thrive assessed 05/06/25 10/29/25 13:43 Const General: no acute distress HENMT Head: Yes normal to inspection Mouth: Normal oral and palatal mucosa present Eyes General: appearance normal, both eyes and all related structures Neck Neck: Yes supple Resp Effort & Inspection: normal respiratory effort Auscultation: clear to auscultation bilaterally Cardio Rhythm: regular rhythm Heart sounds: S1 normal heart sound present and S2 normal heart sound present GI Inspection: Yes normal to inspection Palpation (GI): Soft to palpation Percussion: Yes normal to percussion Auscultation: normal bowel sounds Coding Level of Care Code Est Pt Level 4 (55364) Diagnoses Hypertension I10 DM type 2 (diabetes mellitus, type 2) E11.9 GERD (gastroesophageal reflux disease) K21.9 Assessment & Plan Assessment & Plan (1) Hypertension: Code(s): I10 - Essential (primary) hypertension Category: Medical Plan: restart Lisinopril, medication compliance discussed with the patient. She was advised to monitor her blood pressure regular (2) DM type 2 (diabetes mellitus, type 2): Comment: Diet-controlled Code(s): E11.9 - Type 2 diabetes mellitus without complications Category: Medical Plan: A1c is 6.2, continue ADA diet increase physical activity (3) GERD (gastroesophageal reflux disease): Comment: PPI prn, EGD in [facility] 2009 ? Code(s): K21.9 - Gastro-esophageal reflux disease without esophagitis Category: Medical Plan: Patient was advised to restart esomeprazole and take it for at least 1 month. For any persistent symptoms she was advised to see GI for endoscopy
--- OUTSIDE RECORDS SUMMARY | 2025-10-29 15:23 | XMS_ITS | Patient Health Record ---
Author Organization [facility] Address [address] [place] [address] Care Team Providers Care Mineral Wool Insulation Supervisor Name Role Phone EMPERATRIZ ZARATE Primary Care Provider [phone] Allergies No Known Allergies Reason For Referral No Information Medications Medication SIG (Take, Route, Frequency, Duration) Notes Start Date End Date Status Vitamin D 25 MCG (1000 UT) Tablet as directed orally once a day 02/22/2021 Active Vitamin B6 50 MG Tablet 1 tab(s) orally once a day PRN leg cramps Active Zinc 30 MG Tablet 1 tablet Orally Once a day; Duration: 30 day(s) Active Lisinopril 5 MG Tablet 1 tab(s) orally o nce a day Active Social History Tobacco Use: Social History Observation Description Date Details (start date - stop date) Never Smoker NA - NA Social History Tobacco Use: Social Info Question Answer Notes Smoking Are you a: never smoker Additional Details Category Social Info Options Details General 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 Past year's travels: None alcohol use: no drug use: no Hobbies/Exercise habits: exercis e 3 days a week Coffee/Tea/Soda: yes 1 coffee Marital Status single experience no Living with alone Pets none smokers in household no Section Notes: never smoked never smoked never smoked never smoked never smoked never smoked never smoked never smoked never smoked never smoked Problems Problem Type SNOMED Code ICD Code Onset Dates Problem Status W/U Status Risk Notes Problem Vitamin D deficiency (54428615) Vitamin D deficiency (E55.9) Active confirmed Problem Essential hypertension (85216354) Essential (primary) hypertension (I10) Active confirmed Problem Cough variant asthma (038251422) Cough variant asthma (J45.991) Active confirmed Problem Osteoarthritis of knee (448039679) Primary osteoarthritis of both knees (M17.0) Active confirmed Problem COPD - Chronic obstructive pulmonary disease (61134164) Chronic obstructive pulmonary disease, unspecified COPD type (J44.9) Active confirmed Problem 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 (407103684953369) Coronary artery disease involving poarch heart without angina pectoris, unspecified vessel or lesion type (I25.10) Active confirmed Problem Mixed incontinence (160153994) Mixed stress and urge urinary incontinence (N39.46) Active confirmed Problem History of disorder of vision (263734468820241) Vision problem (H54.7) Active confirmed Problem Polyneuropathy due to type 2 diabetes mellitus (976909608) Type 2 diabetes mellitus with diabetic polyneuropathy, without long-term current use of insulin (E11.42) Active confirmed Problem Uterine prolapse (29545010) Uterine prolapse (N81.4) Active confirmed Problem Bilateral carpal tunnel syndrome (02962555957813201 ) Bilateral carpal tunnel syndrome (G56.03) Active confirmed Problem Nuclear senile cataract (205443736) Age-related nuclear cataract of both eyes (H25.13) Active confirmed Plan Of Treatment Pending Test Test Name Order Date AST ( SGOT) 02/27/2022 CBC W/OUT AUTOMATED DIFF 02/27/2022 Urine Microalbumin(Creat/MALB Ratio) ALT(DO NOT USE) 02/27/2022 Future Test Test Name Order Date XR : SPINE LUMBOSACRAL 2/3 views -SMA XR : SPINE THORACIC 2 views -SMA 019 CHOLESTEROL 12/03/2022 GLYCOHEMOGLOBIN (HBA1C) 12/03/2022 AST ( SGOT) 12/03/2022 CBC W/OUT AUTOMATED DIFF 12/03/2022 LDL DIRECT 12/03/2022 Urine Microalbumin(Creat/MALB Ratio) HDL 12/03/2022 BASIC METABOLIC PANEL 12/03/2022 Insurance Providers Payer Name Payer Address Payer Phone Subscriber Number Group Number Insured Name Patient Relationship to Insured Coverage Start Date Coverage End Date [employer] [address] [address] [place] [address] [id number] [facility] Self - patient is the insured 0 Medical (General) History Medical History History ICD Code hypertension DM stage II uterine prolapse microscropic hematuria cough-variant asthma, COPD, Emphysema chronic dyspnea osteoarthritis bila knees Positive PPD vitamin D deficiency History of coronary artery disease Surgical History Surgery Date(Month/Year)
--- OUTSIDE RECORDS SUMMARY | 2025-10-29 15:23 | XMS_ITS | Clinical Summary ---
Author Organization [facility] Prior to 04/10/25 Address [address] [place] [address] Care Team Providers Care Painter Decorator Name Role Phone Unavailable Primary Care Provider [...] Advance Directives For more information, please contact: [phone] Latest Code Status on File Code Status Date Activated Date Inactivated Comments Full Code 11/22/2021 9:33 PM 11/23/2021 6:55 PM This code status was ascertained in the following way: discussion with patient .
--- OUTSIDE RECORDS SUMMARY | 2025-10-29 15:24 | XMS_ITS | Clinical Summary ---
Author Organization [facility] Address [address] [place] [address] Care Team Providers Care City Sanitarian Name Role Phone Jorgito Tan MD Primary Care Provider + Surgical History Surgery Date Site/Laterality Comments OTHER SURGICAL HISTORY PROCEDURE: DENIES PREVIOUS SURGERY Medical History Medical History Date Comments Heart disease DX:Heart disease ; COMMENT: pt doesn't know details-- possible [place] Prediabetes DX:Prediabetes HTN (hypertension) DX:HTN (hyper tension) [...] on file Sexual Orientation Not on file Plan of Treatment Health Maintenance Due Date Last Done Comments DTaP,Tdap,and Td Vaccines (1 - Tdap) 1967 Pneumococcal Vaccine: 50+ Ye ars (1 of 1 - PCV) 1998 Zoster Vaccines (1 of 2) 1998 RSV Immunization Adult Patie nts (1 - 1-dose 75+ series) 2023 Depression Screening 11/11/2024 COVID-19 Vaccine ( - 2024-2 6 season) 2025 Influenza Vaccine (#1) 2025 HIB Vaccines Aged Out No longer eligi [...] to complete this topic RSV Immunization Patients Un nely 20 months Aged Out No longer eligible b ased on patient's age to complete this topic Varicella Vaccines Aged Out No longer eligible based on patient's age to complete this topic Care Teams City Sanitarian Relationship Specialty Start Date End Date Jorgito Tan MD PCP - General Internal Medicine 05/07/18
== END 2025-10-29 14:28 | disposition home or self-care (01) ==
LOC: HO.HMCC 13:42
PROVIDERS: PCP Internal Medicine; Visit Provider Internal Medicine
DX: I10 Essential (primary) hypertension (principal); E11.9 Type 2 diabetes mellitus without complications; K21.9 Gastro-esophageal reflux disease without esophagitis

== ENCOUNTER → 2025-10-29 13:41 | Outpatient (BNVA) | payer OTHER, SELFPAY | PROVIDERS: PCP Internal Medicine; Visit Provider Internal Medicine | DX: R12 Heartburn (principal); I10 Essential (primary) hypertension; E11.9 Type 2 diabetes mellitus without complications; K21.9 Gastro-esophageal reflux disease without esophagitis; Z79.899 Other long term (current) drug therapy | CPT/HCPCS: 99212 ==